=== PATIENT | male | born 1940 | race Caucasian/White ===

== ENCOUNTER → 2017-01-18 | Outpatient (REF) | payer MEDICARE ==
[2017-01-18 11:52] LABS: ANION GAP 7 MEQ/L (8-16); BLOOD UREA NITROGEN 38 MG/DL (7-18); CALCIUM LEVEL 8.7 MG/DL (8.8-10.2); CARBON DIOXIDE LEVEL 35 MEQ/L (21-32); CHLORIDE LEVEL 100 MEQ/L (98-107); CHOLESTEROL LEVEL 116 MG/DL (<200); CREATININE FOR GFR 1.03 MG/DL (0.70-1.30); GLOMERULAR FILTRATION RATE > 60.0 (>42); GLUCOSE, FASTING 98 MG/DL (83-110); POTASSIUM SERUM 3.8 MEQ/L (3.5-5.1); SODIUM LEVEL 142 MEQ/L (136-145); TRIGLYCERIDES LEVEL 131 MG/DL (<150)
== END ==
LOC: M SFHCCLAY 08:19
PROVIDERS: ATTEND Family Medicine
DX: E11.9 Type 2 diabetes mellitus without complications (principal)

== ENCOUNTER → 2017-02-22 | Outpatient (REF) | payer MEDICARE ==
[2017-02-22 17:25] LABS: BLOOD UREA NITROGEN 35 MG/DL (7-18); GLOMERULAR FILTRATION RATE > 60.0 (>42)
== END ==
LOC: M LAB REF 16:22
PROVIDERS: ATTEND Internal Medicine Pulmonary Disease
DX: J63 Pneumoconiosis due to other inorganic dusts (principal)

== ENCOUNTER → 2017-03-15 | Outpatient (REF) | payer MEDICARE ==
[2017-03-15 14:28] LABS: INR 1.09
== END ==
LOC: M LAB REF 13:23
PROVIDERS: ATTEND Internal Medicine Pulmonary Disease
DX: J90 Pleural effusion, not elsewhere classified (principal)

== ENCOUNTER → 2017-03-19 | Outpatient (CLI) | payer MEDICARE, OTHER ==
--- NOTE | 2017-03-19 11:34 | REP ---
CHEST, TWO VIEWS: Two views of the chest are performed status post right thoracentesis. Pleural fluid on the prior CT of 03/08/2017 has significantly improved and essentially resolved. There is no pneumothorax. There are bibasilar infiltrates. There are degenerative changes of the spine. IMPRESSION: No pneumothorax, status post right thoracentesis. Signed by Justin Langston MD 03/20/2017 04:02 P
[2017-03-19 12:05] LABS: LDH, BODY FLUID 253 U/L (NOT ESTABLISHED); TOTAL PROTEIN, BODY FLUID 6.2 G/DL (NOT ESTABLISHED)
[2017-03-19 12:42] LABS: BF DIFF IF INDICATED? YES (NO); RBC PLEURAL FLUID < 10 (<10mm3 cells/uL); TNC PLEURAL FLUID 1936 cells/uL (0-20)
[2017-03-19 12:45] LABS: CC BF DIFF EXAM CYTOCENTRIFUGE
--- NOTE | 2017-03-20 08:03 | REP ---
ULTRASOUND GUIDED RIGHT THORACENTESIS: The procedure was performed under the direct supervision of Dr. Langston. The risks and benefits of the procedure were explained to the patient and informed consent was obtained. The right pleural effusion was localized using ultrasound guidance. The skin was prepped and draped in a sterile fashion. 1% lidocaine was used as a local anesthetic. An #8-Syriac multi-side hole catheter was inserted using trocar technique. 1410 mL of wil colored fluid was withdrawn with a sample sent to the lab for analysis. The patient tolerated the procedure well and there were no immediate complications. After the appropriate amount of monitored convalescence, the patient was discharged from the department. Reviewed by TUAN Simmons 03/21/2017 03:23 PEdited and Signed by Justin Langston MD 03/21/2017 04:48 P
== END ==
LOC: M RADPRO 09:43
PROVIDERS: ATTEND Internal Medicine Pulmonary Disease
DX: J90 Pleural effusion, not elsewhere classified (principal); Z88.5 Allergy status to narcotic agent; Z88.2 Allergy status to sulfonamides; Z79.899 Other long term (current) drug therapy; Z79.84 Long term (current) use of oral hypoglycemic drugs

== ENCOUNTER → 2017-04-10 | Outpatient (REF) | payer MEDICARE | LOC: M SFHCCLAY 16:13 | PROVIDERS: ATTEND Family Medicine | DX: E11.9 Type 2 diabetes mellitus without complications (principal) ==

== ENCOUNTER → 2017-07-13 | Outpatient (CLI) | payer MEDICARE ==
--- NOTE | 2017-07-13 18:16 | REP ---
Chest x-ray: Two views. History: Pleural effusion. Comparison chest x-ray 03/19/2017. Findings: There is diffuse interstitial lung disease which may reflect pulmonary edema or interstitial fibrosis. This is not new but is more pronounced than on the 03/19/2017 prior study. There is a small to moderate right pleural effusion blunting the right pleural angle on today's chest x-ray. Heart does not appear to be enlarged. No bony abnormality is seen. There is a granulomatous calcification in the left apex again noted. Impression: 1. Small moderate right pleural effusion. 2. Diffuse interstitial lung disease moderate in degree and more pronounced than on the 03/19/2017 prior study.
== END ==
LOC: M CLY 12:10
PROVIDERS: ATTEND Family Medicine
DX: J90 Pleural effusion, not elsewhere classified (principal); J98.4 Other disorders of lung; Z23 Encounter for immunization
CPT/HCPCS: 71020; 90670; G0009

== ENCOUNTER → 2017-10-16 | Outpatient (CLI) | payer MEDICARE ==
--- NOTE | 2017-10-16 15:00 | REP ---
Chest two views HISTORY: Pleural effusion Comparison: 07/13/2017 A diffuse increase in interstitial markings is present in the lungs consistent with chronic interstitial fibrosis. A small right pleural effusion is present unchanged compared to the previous study. The heart is normal in size. The pulmonary vasculature is normal in appearance. Degenerative change is present in the thoracic spine. IMPRESSION: 1. Chronic interstitial fibrosis. 2. Right pleural effusion unchanged compared to the previous study. Signed by Ace Davis MD 10/16/2017 02:52 P
--- NOTE | 2017-10-16 15:08 | REP ---
DECUBITUS CHEST THREE VIEWS: HISTORY: Pleural effusion. COMPARISON: 10/16/2017. A free flowing right pleural effusion is present. An increase in interstitial markings is present in the lungs consistent with chronic interstitial fibrosis. IMPRESSION: There is a free flowing right pleural effusion.
== END ==
LOC: M CLY 13:28
PROVIDERS: ATTEND Family Medicine
DX: J90 Pleural effusion, not elsewhere classified (principal); J98.4 Other disorders of lung; E11.9 Type 2 diabetes mellitus without complications; I10 Essential (primary) hypertension
CPT/HCPCS: 71020; 71035; 80048; 82043; 83036; G0463

== ENCOUNTER → 2017-10-16 | Outpatient (REF) | payer MEDICARE ==
[2017-10-16 18:11] LABS: ANION GAP 2 MEQ/L (8-16); BLOOD UREA NITROGEN 39 MG/DL (7-18); CALCIUM LEVEL 8.9 MG/DL (8.8-10.2); CARBON DIOXIDE LEVEL 38 MEQ/L (21-32); CHLORIDE LEVEL 102 MEQ/L (98-107); CREATININE FOR GFR 1.02 MG/DL (0.70-1.30); GLOMERULAR FILTRATION RATE > 60.0 (>42); GLUCOSE, FASTING 100 MG/DL (83-110); POTASSIUM SERUM 3.7 MEQ/L (3.5-5.1); SODIUM LEVEL 142 MEQ/L (136-145)
== END ==
LOC: M SFHCCLAY 12:23
PROVIDERS: ATTEND Family Medicine
DX: E11.9 Type 2 diabetes mellitus without complications (principal); I10 Essential (primary) hypertension

== ENCOUNTER → 2017-10-26 | Outpatient (CLI) | payer MEDICARE ==
[~2017-10-26] MED LIST: ACETAMINOPHEN 325 MG TAB As Ordered ONE
[2017-10-26 11:23] LABS: BASO % 0.3 % (0.0-1.0); EOS # 0.2 10^3/uL (0.0-0.50); EOS % 3.2 % (0.0-3.0); IMMATURE GRANULOCYTE % 0.2 % (0-0); LYMPH % 16.4 % (24.0-44.0); MEAN CORPUSCULAR HEMOGLOBIN 26.2 pg (27.0-33.0); MEAN CORPUSCULAR VOLUME 84.6 fl (80.0-96.0); MONO # 0.6 10^3/uL (0.0-0.8); NEUTROPHILS # 4.3 10^3/uL (1.8-7.7); NEUTROPHILS % 69.9 % (36.0-66.0); PLATELET COUNT, AUTOMATED 201 10^3/uL (150-450); RED CELL DISTRIBUTION WIDTH 15.7 % (11.5-14.5); WHITE BLOOD COUNT 6.2 10^3/uL (4.0-10.0)
[2017-10-26 11:33] LABS: INR 1.01
[2017-10-26 11:52] LABS: ALBUMIN 2.2 GM/DL (3.2-5.2); ALBUMIN/GLOBULIN RATIO 0.42 (1.00-1.93); ALKALINE PHOSPHATASE 133 U/L (45-117); ALT/SGPT 25 U/L (12-78); ANION GAP 5 MEQ/L (8-16); AST/SGOT 45 U/L (7-37); BILIRUBIN,TOTAL 0.3 MG/DL (0.2-1.0); BLOOD UREA NITROGEN 28 MG/DL (7-18); CALCIUM LEVEL 8.1 MG/DL (8.8-10.2); CARBON DIOXIDE LEVEL 34 MEQ/L (21-32); CHLORIDE LEVEL 106 MEQ/L (98-107); CREATININE FOR GFR 0.96 MG/DL (0.70-1.30); GLOMERULAR FILTRATION RATE > 60.0 (>42); GLUCOSE, FASTING 92 MG/DL (83-110); POTASSIUM SERUM 4.2 MEQ/L (3.5-5.1); SODIUM LEVEL 145 MEQ/L (136-145); TOTAL PROTEIN 7.4 GM/DL (6.4-8.2)
[2017-10-26 13:05] LABS: BF MONONUCLEAR CELL % 97.5 % (0-0); BF POLYMORPHONUCLEAR CELL % 2.5 % (0-0); RBC BODY FLUID < 2 10^3/uL (<2); WBC BODY FLUID 1686 /uL (0-10)
[2017-10-26 13:07] LABS: LDH, BODY FLUID 207 U/L (NOT ESTABLISHED); TOTAL PROTEIN, BODY FLUID 5.1 G/DL (NOT ESTABLISHED)
[2017-10-26 13:21] LABS: BF DIFF IF INDICATED? YES (NO)
--- NOTE | 2017-10-26 13:21 | REP ---
CHEST, TWO VIEWS: Two views of the chest are performed status post right thoracentesis. There is decreased right pleural fluid. There is no pneumothorax. There is residual pleural and parenchymal opacity in the right base. Left lung is unchanged since the prior exam of 10/16/2017. Cardiomediastinal silhouette is also unchanged. IMPRESSION: Decreased right pleural fluid. Status post right thoracentesis. No pneumothorax. Signed by Justin Langston MD 10/26/2017 05:00 P
--- NOTE | 2017-10-26 17:01 | REP ---
ULTRASOUND-GUIDED RIGHT THORACENTESIS The procedure was performed under the direct supervision of Dr. Langston The risks and benefits of the procedure were explained to the patient and informed consent was obtained. The right pleural effusion was localized using ultrasound guidance. The skin was prepped and draped in a sterile fashion. 1% Xylocaine was used as a local anesthetic. An 8-Macedonian multi side-hole catheter was inserted using trocar technique. 1300 ml of clear yellow fluid was withdrawn and sent to lab. The patient tolerated the procedure well and there were no immediate complications. After the appropriate amount of monitored convalescence the patient was discharged from the department. Reviewed by TUAN Simmons 10/26/2017 04:50 PSigned by Justin Langston MD 10/26/2017 04:52 P
== END ==
LOC: M RADPRO 10:37
PROVIDERS: ATTEND Internal Medicine Pulmonary Disease
DX: J90 Pleural effusion, not elsewhere classified (principal); Z96.653 Presence of artificial knee joint, bilateral; Z88.5 Allergy status to narcotic agent; Z88.8 Allergy status to other drugs, medicaments and biological substances; Z88.2 Allergy status to sulfonamides; Z79.899 Other long term (current) drug therapy

== ENCOUNTER → 2017-11-16 | Outpatient (REF) | payer MEDICARE ==
[2017-11-16 13:21] LABS: COMPLEMENT C3 133 MG/DL (90-180); COMPLEMENT C4 25.6 MG/DL (10-40); FERRITIN 451 NG/ML (26-388); IRON (FE) 51 UG/DL (65-175); PERCENT SATURATION 21.8 % (19.7-50.0); TOTAL IRON BINDING CAPACITY 234 UG/DL (250-450); TOTAL PROTEIN 7.8 GM/DL (6.4-8.2)
[2017-11-16 13:37] LABS: HEPATITIS B SURFACE ANTIBODY NEGATIVE (POSITIVE)
[2017-11-16 13:40] LABS: TOTAL PROTEIN,RANDOM URINE 1028.8 MG/DL (0.0-12.0); URINE TOTAL PROTEIN 1028.8 MG/DL (0-12)
[2017-11-16 13:47] LABS: HEPATITIS B SURFACE ANTIGEN NEGATIVE (NEGATIVE)
[2017-11-16 14:16] LABS: HEPATITIS C VIRUS ABY INDEX 0.1 INDEX (<0.8)
[2017-11-18 00:09] LABS: ANTI DOUBLE STRAND-DNA AB <1 IU/mL (0-9); ANTINUCLEAR ANTIBODIES DIRECT Positive (Negative); FREE KAPPA LIGHT CHAINS SERUM 182.8 mg/L (3.3-19.4); KAPPA/LAMBDA RATIO SERUM 2.61 (0.26-1.65); RNP ANTIBODIES 0.4 AI (0.0-0.9); SJOGREN'S ANTI SS-A 1.3 AI (0.0-0.9); SJOGREN'S ANTI SS-B <0.2 AI (0.0-0.9); SMITH ANTIBODIES <0.2 AI (0.0-0.9)
[2017-11-19 13:25] LABS: ALBUMIN 2.71 GM/DL (3.29-5.55); ALBUMIN % 34.8 % (55.8-66.1); ALPHA-1-GLOBULIN % 4.8 % (2.9-4.9); ALPHA-2-GLOBULINS % 18.7 % (7.1-11.8); BETA-1-GLOBULINS % 5.5 % (4.7-7.2); BETA-2-GLOBULINS % 7.5 % (3.2-6.5); GAMMA GLOBULIN % 28.7 % (11.1-18.8)
[2017-11-19 13:26] LABS: ALPHA-1-GLOBULINS 0.37 GM/DL (0.17-0.41); ALPHA-2-GLOBULINS 1.46 GM/DL (0.42-0.99); BETA-1-GLOBULINS 0.43 GM/DL (0.28-0.60); BETA-2-GLOBULINS 0.59 GM/DL (0.19-0.55); GAMMA GLOBULINS 2.24 GM/DL (0.65-1.58)
[2017-11-21 14:29] LABS: IMMUNOTYPING SERUM IGG ABNORMAL (NORMAL); IMMUNOTYPING SERUM KAPPA ABNORMAL (NORMAL)
== END ==
LOC: M LAB REF 12:53
DX: R80.9 Proteinuria, unspecified (principal); N18.2 Chronic kidney disease, stage 2 (mild); D64.9 Anemia, unspecified
CPT/HCPCS: 83550

== ENCOUNTER → 2017-11-23 | Outpatient (CLI) | payer MEDICARE | LOC: M RAD 09:36 | DX: N18.2 Chronic kidney disease, stage 2 (mild) (principal); N28.1 Cyst of kidney, acquired; N40.1 Benign prostatic hyperplasia with lower urinary tract symptoms; R80.9 Proteinuria, unspecified; R35.1 Nocturia | CPT/HCPCS: 76775 ==

== ENCOUNTER → 2018-01-07 | Outpatient (REF) | payer MEDICARE ==
[2018-01-07 18:33] LABS: TOTAL PROTEIN,RANDOM URINE 706.1 MG/DL (0.0-12.0)
[2018-01-11 00:07] LABS: ANCA-ATYPICAL <1:20 titer (Neg:<1:20); CYTOPLASMIC NEUTROP AB ANCA-C <1:20 titer (Neg:<1:20); PERINUCLEAR AB ANCA-P <1:20 titer (Neg:<1:20)
== END ==
LOC: M LAB REF 17:10
DX: N18.2 Chronic kidney disease, stage 2 (mild) (principal); R31.29 Other microscopic hematuria; R80.9 Proteinuria, unspecified
CPT/HCPCS: 84156

== ENCOUNTER → 2018-02-15 | Outpatient (REF) | payer MEDICARE ==
[2018-02-15 13:35] LABS: IMMUNOGLOBULIN G 1970 MG/DL (681-1648); IMMUNOGLOBULIN M 65.2 MG/DL (40-230)
[2018-02-17 00:06] LABS: KAPPA/LAMBDA RATIO SERUM 2.68 (0.26-1.65)
== END ==
LOC: M LAB REF 12:46
DX: C90.00 Multiple myeloma not having achieved remission (principal)
CPT/HCPCS: 82784

== ENCOUNTER → 2018-03-04 | Outpatient (REF) | payer MEDICARE | LOC: M LAB REF 14:10 | DX: C90.00 Multiple myeloma not having achieved remission (principal) | CPT/HCPCS: 88300 ==

== ENCOUNTER → 2018-10-09 | Outpatient (REF) | payer MEDICARE ==
[2018-10-09 16:58] LABS: URINE TOTAL PROTEIN 542.7 MG/DL (0-12)
[2018-10-09 17:07] LABS: IMMUNOGLOBULIN A 408 MG/DL (70-400); IMMUNOGLOBULIN G 2020 MG/DL (681-1648); IMMUNOGLOBULIN M 65 MG/DL (40-230); TOTAL PROTEIN 7.1 GM/DL (6.4-8.2)
[2018-10-11 11:26] LABS: ALBUMIN 2.31 GM/DL (3.29-5.55); ALBUMIN % 32.5 % (55.8-66.1); ALPHA-1-GLOBULIN % 5.3 % (2.9-4.9); ALPHA-1-GLOBULINS 0.38 GM/DL (0.17-0.41); ALPHA-2-GLOBULINS 1.42 GM/DL (0.42-0.99); BETA-1-GLOBULINS % 6.1 % (4.7-7.2); BETA-2-GLOBULINS % 7.1 % (3.2-6.5)
[2018-10-11 11:27] LABS: BETA-1-GLOBULINS 0.43 GM/DL (0.28-0.60); GAMMA GLOBULINS 2.06 GM/DL (0.65-1.58)
[2018-10-11 13:33] LABS: UPEP INTERPRETATION M-SPIKE IN GAMMA; URINE VOLUME RANDOM ML
[2018-10-12 00:57] LABS: FREE KAPPA LIGHT CHAINS SERUM 208.4 mg/L (3.3-19.4); FREE LAMBDA LIGHT CHAINS SERUM 90.2 mg/L (5.7-26.3); KAPPA/LAMBDA RATIO SERUM 2.31 (0.26-1.65)
== END ==
LOC: M LABDRAWC 16:18
DX: C90.00 Multiple myeloma not having achieved remission (principal)
CPT/HCPCS: 84165

== ENCOUNTER → 2019-01-21 | Outpatient (CLI) | payer OTHER ==
[~2019-01-21] MED LIST changes: -ACETAMINOPHEN 325 MG TAB As Ordered ONE; +ATOR1TAB19 PO; +FERR325T3 PO; +FLOM0.4C39 PO; +LASI40TA9 PO; +LOSA50TA5 PO; +METF500T13 PO; +METF500T4 PO; +METO50TA7 PO
--- NOTE | 2019-01-22 03:16 | REP ---
Clinical: Chronic pneumoconiosis. Technique: PA and lateral. Comparison: 10/16/2017. Findings: The aerated lung hansen demonstrate diffuse chronic interstitial changes similar to prior examination. There is no evidence for pneumothorax. The visualized portions of the mediastinum and cardiac silhouette remains essentially stable. There is no cardiomegaly. Dense opacity noted involving the right mid to lower lung zone which is increased from prior examination and may represent chronic changes along with pleural effusion. The skeletal structures are intact and demonstrate age-related osteopenia and degenerative change. Impression: 1. Right mid to lower lobe opacity increased from prior examinations may reflect pleural effusion and chronic change. 2. Diffuse chronic interstitial changes remain stable. Superimposed areas of atelectasis cannot be excluded.
--- NOTE | 2019-01-22 03:20 | REP ---
Clinical: Chronic pneumoconiosis. Technique: Bilateral decubitus radiographs of the chest. Findings: Examination suggests the right-sided mid to lower lung opacity to the relatively stable likely representing chronic change. A small associated layering pleural collection cannot be excluded. No obvious left effusion. No pneumothorax. Mediastinum, cardiac silhouette, and lung hansen demonstrate chronic stable changes. Impression: Right-sided opacity primarily stable on decubitus radiograph suggesting chronic change and less likely loculated collection. A small layering right effusion cannot be excluded.
== END ==
LOC: M CLY 14:51
PROVIDERS: ATTEND Internal Medicine Pulmonary Disease
DX: J63 Pneumoconiosis due to other inorganic dusts (principal)

== ENCOUNTER → 2019-01-31 | Outpatient (REF) | payer OTHER, MEDICARE ==
[2019-01-31 17:17] LABS: BLOOD UREA NITROGEN 32 MG/DL (7-18); CALCIUM LEVEL 8.3 MG/DL (8.8-10.2); CARBON DIOXIDE LEVEL 32 MEQ/L (21-32); CHLORIDE LEVEL 104 MEQ/L (98-107); CHOLESTEROL LEVEL 152 MG/DL (<200); CREATININE FOR GFR 1.08 MG/DL (0.70-1.30); GLOMERULAR FILTRATION RATE > 60.0 (>35); GLUCOSE, FASTING 92 MG/DL (70-100); HDL CHOLESTEROL 40 MG/DL (>40); LDL CHOLESTEROL 79 MG/DL (<100); NON-HDL-C 112 MG/DL; POTASSIUM SERUM 4.2 MEQ/L (3.5-5.1); SODIUM LEVEL 141 MEQ/L (136-145); TRIGLYCERIDES LEVEL 167 MG/DL (<150)
[2019-01-31 17:21] LABS: HEMATOCRIT 35.9 % (42.0-52.0); HEMOGLOBIN 10.6 g/dl (13.5-17.5); MEAN CORPUSCULAR HEMOGLOBIN 25.1 pg (27.0-33.0); MEAN CORPUSCULAR HGB CONC 29.5 g/dl (32.0-36.5); MEAN CORPUSCULAR VOLUME 84.9 fl (80.0-96.0); PLATELET COUNT, AUTOMATED 198 10^3/uL (150-450); RED BLOOD COUNT 4.23 10^6/uL (4.30-6.10); WHITE BLOOD COUNT 5.7 10^3/uL (4.0-10.0)
[2019-01-31 17:41] LABS: HEMOGLOBIN A1c 5.9 %
[2019-02-03 14:52] LABS: ALBUMIN 2.32 GM/DL (3.29-5.55); ALBUMIN % 33.2 % (55.8-66.1); ALPHA-1-GLOBULIN % 4.9 % (2.9-4.9); ALPHA-1-GLOBULINS 0.34 GM/DL (0.17-0.41); ALPHA-2-GLOBULINS 1.33 GM/DL (0.42-0.99); BETA-1-GLOBULINS % 5.7 % (4.7-7.2); BETA-2-GLOBULINS 0.51 GM/DL (0.19-0.55); BETA-2-GLOBULINS % 7.3 % (3.2-6.5); GAMMA GLOBULIN % 29.9 % (11.1-18.8); GAMMA GLOBULINS 2.09 GM/DL (0.65-1.58)
== END ==
LOC: M SFHCCLAY 09:49
PROVIDERS: ATTEND Family Medicine
DX: J63 Pneumoconiosis due to other inorganic dusts (principal); I11.9 Hypertensive heart disease without heart failure; E11.9 Type 2 diabetes mellitus without complications; D47.2 Monoclonal gammopathy
CPT/HCPCS: 80048; 80061; 83036; 84165; 85027; 99497; G0463

== ENCOUNTER → 2019-06-20 | Outpatient (REF) | payer MEDICARE | LOC: M SFHCCLAY 14:21 | PROVIDERS: ATTEND Family Medicine | DX: E11.9 Type 2 diabetes mellitus without complications (principal); I27.81 Cor pulmonale (chronic); J62.8 Pneumoconiosis due to other dust containing silica; Z53.8 Procedure and treatment not carried out for other reasons ==

== ENCOUNTER → 2019-06-26 | Outpatient (REF) | payer MEDICARE ==
[~2019-06-26] MED LIST changes: +METF-791 PO; -METF500T4 PO
[2019-06-26 12:02] LABS: CALCIUM LEVEL 8.7 MG/DL (8.8-10.2); CREATININE FOR GFR 2.51 MG/DL (0.70-1.30); GLOMERULAR FILTRATION RATE 26.5 (>35); HEMATOCRIT 35.4 % (42.0-52.0); HEMOGLOBIN 10.9 g/dl (13.5-17.5); MEAN CORPUSCULAR HEMOGLOBIN 27.5 pg (27.0-33.0); MEAN CORPUSCULAR HGB CONC 30.8 g/dl (32.0-36.5); MEAN CORPUSCULAR VOLUME 89.2 fl (80.0-96.0); PLATELET COUNT, AUTOMATED 208 10^3/uL (150-450); POTASSIUM SERUM 4.3 MEQ/L (3.5-5.1); RED BLOOD COUNT 3.97 10^6/uL (4.30-6.10)
[2019-06-26 13:34] LABS: HEMOGLOBIN A1c 6.2 %
== END ==
LOC: M SFHCCLAY 08:26
PROVIDERS: ATTEND Family Medicine
DX: E11.9 Type 2 diabetes mellitus without complications (principal); I27.81 Cor pulmonale (chronic); J62.8 Pneumoconiosis due to other dust containing silica

== ENCOUNTER → 2019-07-08 | Outpatient (REF) | payer MEDICARE ==
[~2019-07-08] MED LIST changes: -METF-791 PO; +METF500T4 PO
[2019-07-08 13:25] LABS: CALCIUM LEVEL 8.8 MG/DL (8.8-10.2); CREATININE FOR GFR 2.66 MG/DL (0.70-1.30); GLOMERULAR FILTRATION RATE 24.7 (>35); POTASSIUM SERUM 4.2 MEQ/L (3.5-5.1)
== END ==
LOC: M SFHCCLAY 08:29
PROVIDERS: ATTEND Family Medicine
DX: I10 Essential (primary) hypertension (principal)

== ENCOUNTER → 2020-03-15 | Outpatient (CLI) | payer MEDICARE ==
[~2020-03-15] MED LIST changes: +METF-791 PO; -METF500T4 PO
--- NOTE | 2020-03-15 10:12 | REP ---
CHEST TWO VIEWS: Two views of the chest are performed. COMPARISON: 01/21/2019 There is no significant change when compared to that prior study. Diffuse interstitial fibrotic changes are again seen bilaterally. The heart is not significantly enlarged. There is calcification of the thoracic aorta. The mediastinal silhouette is unchanged. Right basilar pleural fluid/thickening and adjacent right basilar parenchymal opacity is unchanged. There are degenerative changes of the spine. IMPRESSION: Stable chronic interstitial fibrotic changes bilaterally. No change in right pleural fluid/thickening and adjacent right basilar parenchymal opacity. Electronically Signed by Justin Langston MD 03/15/2020 11:57 A
== END ==
LOC: M CLY 08:47
PROVIDERS: ATTEND Internal Medicine Pulmonary Disease
DX: J64 Unspecified pneumoconiosis (principal)

== ENCOUNTER → 2020-11-08 | Outpatient (REF) | payer MEDICARE ==
[~2020-11-08] MED LIST changes: -METF-791 PO; +METF-838 PO
[2020-11-08 16:32] LABS: HEMATOCRIT 31.5 % (42.0-52.0); HEMOGLOBIN 9.3 g/dl (13.5-17.5); MEAN CORPUSCULAR HEMOGLOBIN 25.8 pg (27.0-33.0); MEAN CORPUSCULAR HGB CONC 29.5 g/dl (32.0-36.5); MEAN CORPUSCULAR VOLUME 87.5 fl (80.0-96.0); PLATELET COUNT, AUTOMATED 170 10^3/uL (150-450); WHITE BLOOD COUNT 5.4 10^3/uL (4.0-10.0)
[2020-11-08 16:45] LABS: HEMOGLOBIN A1c 5.8 %
[2020-11-08 16:54] LABS: ALBUMIN 2.7 GM/DL (3.2-5.2); ALT/SGPT 28 U/L (12-78); BILIRUBIN,TOTAL 0.4 MG/DL (0.2-1.0); BLOOD UREA NITROGEN 49 MG/DL (7-18); CALCIUM LEVEL 8.6 MG/DL (8.8-10.2); CARBON DIOXIDE LEVEL 28 MEQ/L (21-32); CHLORIDE LEVEL 110 MEQ/L (98-107); CREATININE FOR GFR 2.47 MG/DL (0.70-1.30); GLOMERULAR FILTRATION RATE 26.8 (>35); GLUCOSE, FASTING 107 MG/DL (70-100); POTASSIUM SERUM 3.9 MEQ/L (3.5-5.1); SODIUM LEVEL 142 MEQ/L (136-145)
[2020-11-08 17:11] LABS: AMORPHOUS SEDIMENT SMALL (NEGATIVE); APPEARANCE, URINE TURBID (CLEAR); BACTERIA, URINE AUTO 3+ (NEGATIVE); BILIRUBIN, URINE AUTO NEGATIVE (NEGATIVE); BLOOD, URINE BLOOD 2+ (NEGATIVE); COLOR, URINE YELLOW (YELLOW); GLUCOSE, URINE (UA) AUTO 1+ mg/dL (NEGATIVE); GRANULAR CAST, URINE AUTO 6 /LPF; KETONE, URINE AUTO NEGATIVE (NEGATIVE); LEUKOCYTE ESTERASE, URINE AUTO 3+ (NEGATIVE); MUCUS, URINE SMALL (NEGATIVE); NITRITE, URINE AUTO NEGATIVE (NEGATIVE); PROTEIN, URINE AUTO 3+ mg/dL (NEGATIVE); RBC, URINE AUTO 36 /HPF (0-3); SPECIFIC GRAVITY URINE AUTO 1.014 (1.002-1.035); SQUAMOUS EPITHELIAL CELL UR AU 0 /HPF (0-6); UROBILINOGEN, URINE AUTO 0.2 mg/dL (0.0-2.0); WBC, URINE AUTO TNTC /HPF (0-3)
[2020-11-11 12:24] LABS: ALBUMIN 3.05 GM/DL (3.29-5.55); ALBUMIN % 38.1 % (55.8-66.1); ALPHA-1-GLOBULIN % 5.3 % (2.9-4.9); ALPHA-1-GLOBULINS 0.42 GM/DL (0.17-0.41); ALPHA-2-GLOBULINS 1.33 GM/DL (0.42-0.99); ALPHA-2-GLOBULINS % 16.6 % (7.1-11.8); BETA-1-GLOBULINS 0.46 GM/DL (0.28-0.60); BETA-1-GLOBULINS % 5.7 % (4.7-7.2); BETA-2-GLOBULINS 0.54 GM/DL (0.19-0.55); BETA-2-GLOBULINS % 6.8 % (3.2-6.5); GAMMA GLOBULIN % 27.5 % (11.1-18.8)
[2020-11-11 12:54] LABS: IMMUNOTYPING SERUM IGG ABNORMAL (NORMAL); IMMUNOTYPING SERUM KAPPA ABNORMAL (NORMAL)
== END ==
LOC: M SFHCCLAY 09:35
PROVIDERS: ATTEND Family Medicine
DX: R31.9 Hematuria, unspecified (principal); I10 Essential (primary) hypertension; E11.29 Type 2 diabetes mellitus with other diabetic kidney complication; D47.2 Monoclonal gammopathy
CPT/HCPCS: 80053; 81001; 81002; 83036; 84165; 85027; 86335; 87086; G0463

== ENCOUNTER → 2021-03-25 | Outpatient (CLI) | payer OTHER ==
--- NOTE | 2021-03-25 11:27 | REP ---
INDICATION: PNEUMOCONIOSIS DUE TO TALC DUST. COMPARISON: 03/15/2020 TECHNIQUE: PA and lateral views FINDINGS: The cardiomediastinal silhouette is unchanged. The lung hansen are unchanged. There is a chronic right basilar opacity silhouetting out the diaphragmatic surface of the right lung and right heart border consistent with a chronic pleural effusion. Once again, there is a diffuse increase in the interstitial markings throughout the lung hansen status quo. No acute abnormal opacities have developed. There is no change in the osseous structures. IMPRESSION: Stable chronic changes as described above. <Electronically signed by Jim Guzman > 03/25/21 [id number]
== END ==
LOC: M CLY 10:31
PROVIDERS: ATTEND Internal Medicine Pulmonary Disease
DX: J62.0 Pneumoconiosis due to talc dust (principal)

== ENCOUNTER → 2021-06-15 | Outpatient (REF) | payer MEDICARE ==
[2021-06-15 16:44] LABS: ALBUMIN 2.9 GM/DL (3.2-5.2); BILIRUBIN,TOTAL 0.3 MG/DL (0.2-1.0); CALCIUM LEVEL 8.5 MG/DL (8.8-10.2); CREATININE FOR GFR 2.56 MG/DL (0.70-1.30); GLOMERULAR FILTRATION RATE 25.7 (>35); POTASSIUM SERUM 3.9 MEQ/L (3.5-5.1); TOTAL PROTEIN 8.2 GM/DL (6.4-8.2)
[2021-06-15 16:54] LABS: HEMATOCRIT 29.7 % (42.0-52.0); HEMOGLOBIN 8.4 g/dl (13.5-17.5); MEAN CORPUSCULAR HEMOGLOBIN 25.1 pg (27.0-33.0); MEAN CORPUSCULAR HGB CONC 28.3 g/dl (32.0-36.5); MEAN CORPUSCULAR VOLUME 88.7 fl (80.0-96.0); PLATELET COUNT, AUTOMATED 200 10^3/uL (150-450); RED BLOOD COUNT 3.35 10^6/uL (4.30-6.10); WHITE BLOOD COUNT 6.7 10^3/uL (4.0-10.0)
[2021-06-15 17:08] LABS: HEMOGLOBIN A1c 6.2 %
== END ==
LOC: M SFHCCLAY 10:15
PROVIDERS: ATTEND Family Medicine
DX: E11.29 Type 2 diabetes mellitus with other diabetic kidney complication (principal); I10 Essential (primary) hypertension
CPT/HCPCS: 80053; 83036; 85027; G0463

== ENCOUNTER → 2021-06-28 | Outpatient (REF) | payer MEDICARE ==
[2021-06-28 11:57] LABS: ALBUMIN 2.8 GM/DL (3.2-5.2); CALCIUM LEVEL 8.2 MG/DL (8.8-10.2); CREATININE FOR GFR 2.37 MG/DL (0.70-1.30); GLOMERULAR FILTRATION RATE 28.1 (>35); POTASSIUM SERUM 3.9 MEQ/L (3.5-5.1)
== END ==
LOC: M SFHCCLAY 08:33
PROVIDERS: ATTEND Family Medicine
DX: E11.21 Type 2 diabetes mellitus with diabetic nephropathy (principal)